=== PATIENT | female | born 1980 | race Caucasian/White ===

== ENCOUNTER 2023-01-06 17:28 | Inpatient (IN) | payer OTHER ==
[~2023-01-06] VITALS: Ht 167.6 cm; Wt 72.8 kg
[2023-01-06 20:45] VITALS: BP 94/79
[2023-01-06 21:00] VITALS: BP 112/80
[2023-01-06 22:00] VITALS: BP 94/79
[2023-01-06 22:09] LABS: BASOPHILS ABSOLUTE AUTO 0.07 K/mm3 (0.00-0.23); BASOPHILS PERCENT AUTO 0 % (0-2); EOSINOPHILS ABSOLUTE AUTO 0.07 K/mm3 (0.00-0.68); EOSINOPHILS PERCENT AUTO 0 % (0-6); Hematocrit 19.5 % (33.0-51.0); Hemoglobin 6.5 g/dL (11.5-16.0); IMMATURE GRAN ABSOLUTE AUTO 0.13 K/mm3 (0.00-0.10); IMMATURE GRAN PERCENT AUTO 1 % (0-1); LYMPHOCYTES ABSOLUTE AUTO 2.13 K/mm3 (0.84-5.20); LYMPHOCYTES PERCENT AUTO 10 % (21-46); MONOCYTES ABSOLUTE AUTO 1.81 K/mm3 (0.16-1.47); MONOCYTES PERCENT AUTO 9 % (4-13); Mean Corpuscular HGB 40.9 pg (26.0-34.0); Mean Corpuscular HGB Conc 33.3 g/dL (31.5-36.5); Mean Corpuscular Volume 123 fL (80-100); Mean Platelet Volume 11.1 fL (9.1-12.4); NEUTROPHILS ABSOLUTE AUTO 16.18 K/mm3 (1.96-9.15); NEUTROPHILS PERCENT AUTO 80 % (41-73); NRBC ABSOLUTE 0.02 K/mm3 (0.00-0.02); NRBC Auto 0.1 /100 WBC (0.0-0.2); Platelet Count 127 K/mm3 (150-400); RDW Coefficient Variation 18.4 % (11.7-14.2); RDW Standard Deviation 79.5 fL (35.1-46.3); Red Blood Cell Count 1.59 M/mm3 (3.80-5.20); White Blood Cell Count 20.39 K/mm3 (4.00-11.30)
[2023-01-06 22:36] LABS: Albumin, Blood 2.1 g/dL (3.4-5.0); Albumin/Globulin Ratio 0.5 (0.8-1.8); Bilirubin, Total 14.6 mg/dL (0.1-1.0); Bun/Creatinine Ratio 18.1 (12.0-20.0); Calcium, Blood 7.8 mg/dL (8.5-10.1); Creatinine, Blood 0.94 mg/dL (0.40-1.00); Magnesium, Blood 1.6 mg/dL (1.6-2.4); Total Protein, Blood 6.1 g/dL (6.4-8.2)
[2023-01-06 23:00] VITALS: BP 93/65
[2023-01-06 23:45] VITALS: BP 106/80
[2023-01-07] VITALS (43 sets, daily range): BP systolic 81–156; BP diastolic 45–124
[2023-01-07 04:09] LABS: BASOPHILS ABSOLUTE AUTO 0.13 K/mm3 (0.00-0.23); BASOPHILS PERCENT AUTO 1 % (0-2); EOSINOPHILS ABSOLUTE AUTO 0.12 K/mm3 (0.00-0.68); EOSINOPHILS PERCENT AUTO 1 % (0-6); Hemoglobin 8.5 g/dL (11.5-16.0); IMMATURE GRAN PERCENT AUTO 1 % (0-1); LYMPHOCYTES PERCENT AUTO 16 % (21-46); MONOCYTES PERCENT AUTO 6 % (4-13); Mean Platelet Volume 11.2 fL (9.1-12.4); NEUTROPHILS ABSOLUTE AUTO 15.36 K/mm3 (1.96-9.15); NEUTROPHILS PERCENT AUTO 77 % (41-73); NRBC ABSOLUTE 0.02 K/mm3 (0.00-0.02); NRBC Auto 0.1 /100 WBC (0.0-0.2); Platelet Count 109 K/mm3 (150-400); White Blood Cell Count 20.01 K/mm3 (4.00-11.30)
[2023-01-07 04:12] LABS: Hematocrit 24.8 % (33.0-51.0); Mean Corpuscular HGB 36.6 pg (26.0-34.0); Mean Corpuscular HGB Conc 34.3 g/dL (31.5-36.5); Mean Corpuscular Volume 107 fL (80-100); Red Blood Cell Count 2.32 M/mm3 (3.80-5.20)
[2023-01-07 04:21] LABS: International Normalized Ratio 1.81; Prothrombin Time Results 18.4 Sec (9.7-11.5)
[2023-01-07 04:33] LABS: Albumin, Blood 2.1 g/dL (3.4-5.0); Albumin/Globulin Ratio 0.5 (0.8-1.8); Bilirubin, Total 15.6 mg/dL (0.1-1.0); Bun/Creatinine Ratio 18.6 (12.0-20.0); Calcium, Blood 7.6 mg/dL (8.5-10.1); Creatinine, Blood 0.91 mg/dL (0.40-1.00); Globulin, Blood 3.9 g/dL (2.2-4.0); Magnesium, Blood 1.4 mg/dL (1.6-2.4); Potassium, Blood 3.6 mmol/L (3.5-5.5)
--- NOTE | 2023-01-07 08:17 | NUR ---
AM NOTE PT UP TO TOILET SBA TO MANAGE LINES, VSS, SHE IS ON RA. SHE REPORTS GENERALIZED PAIN, PAIN IS CHRONIC SHE TAKES OXYCODONE AT HOME. SHE IS CURRENTLY WORKING ON [employer].
[2023-01-07 10:35] LABS: BASOPHILS ABSOLUTE AUTO 0.13 K/mm3 (0.00-0.23); BASOPHILS PERCENT AUTO 1 % (0-2); EOSINOPHILS ABSOLUTE AUTO 0.09 K/mm3 (0.00-0.68); EOSINOPHILS PERCENT AUTO 1 % (0-6); Hemoglobin 8.2 g/dL (11.5-16.0); IMMATURE GRAN ABSOLUTE AUTO 0.14 K/mm3 (0.00-0.10); IMMATURE GRAN PERCENT AUTO 1 % (0-1); LYMPHOCYTES ABSOLUTE AUTO 1.47 K/mm3 (0.84-5.20); LYMPHOCYTES PERCENT AUTO 8 % (21-46); MONOCYTES ABSOLUTE AUTO 1.77 K/mm3 (0.16-1.47); MONOCYTES PERCENT AUTO 9 % (4-13); Mean Platelet Volume 11.5 fL (9.1-12.4); NEUTROPHILS ABSOLUTE AUTO 16.12 K/mm3 (1.96-9.15); NEUTROPHILS PERCENT AUTO 82 % (41-73); NRBC ABSOLUTE 0.02 K/mm3 (0.00-0.02); NRBC Auto 0.1 /100 WBC (0.0-0.2); Platelet Count 101 K/mm3 (150-400); White Blood Cell Count 19.72 K/mm3 (4.00-11.30)
[2023-01-07 10:53] LABS: Hematocrit 23.1 % (33.0-51.0); Mean Corpuscular HGB 37.3 pg (26.0-34.0); Mean Corpuscular HGB Conc 35.5 g/dL (31.5-36.5); Mean Corpuscular Volume 105 fL (80-100)
[2023-01-07 15:33] LABS: U Amphetamine Screen Not Detected; U Barbituate Screen Not Detected; U Benzodiazapine Screen Not Detected; U Buprenorphine Screen Not Detected; U Cannabinoids Screen Not Detected; U Cocaine Screen Not Detected; U Methadone Screen DETECTED; U Methamphetamine Screen Not Detected; U Opiates Screen DETECTED; U Phencyclidine Screen Not Detected
[2023-01-07 15:34] LABS: U Oxycodone Screen DETECTED
[2023-01-07 16:26] LABS: BASOPHILS ABSOLUTE AUTO 0.08 K/mm3 (0.00-0.23); BASOPHILS PERCENT AUTO 0 % (0-2); EOSINOPHILS ABSOLUTE AUTO 0.03 K/mm3 (0.00-0.68); EOSINOPHILS PERCENT AUTO 0 % (0-6); Hemoglobin 8.1 g/dL (11.5-16.0); IMMATURE GRAN ABSOLUTE AUTO 0.13 K/mm3 (0.00-0.10); IMMATURE GRAN PERCENT AUTO 1 % (0-1); LYMPHOCYTES ABSOLUTE AUTO 1.72 K/mm3 (0.84-5.20); LYMPHOCYTES PERCENT AUTO 9 % (21-46); MONOCYTES PERCENT AUTO 8 % (4-13); Mean Platelet Volume 11.1 fL (9.1-12.4); NEUTROPHILS ABSOLUTE AUTO 15.97 K/mm3 (1.96-9.15); NEUTROPHILS PERCENT AUTO 82 % (41-73); NRBC ABSOLUTE 0.02 K/mm3 (0.00-0.02); NRBC Auto 0.1 /100 WBC (0.0-0.2); Platelet Count 106 K/mm3 (150-400); White Blood Cell Count 19.43 K/mm3 (4.00-11.30)
--- NOTE | 2023-01-07 17:33 | NUR ---
01/07/23 1733 Marcie Jordan IN ICU [address] BUSTAMANTE'S RECORD FOR SEDATION.
[2023-01-07 17:58] LABS: Mean Corpuscular HGB 37.2 pg (26.0-34.0); Mean Corpuscular HGB Conc 35.2 g/dL (31.5-36.5); Mean Corpuscular Volume 106 fL (80-100); Red Blood Cell Count 2.18 M/mm3 (3.80-5.20)
--- NOTE | 2023-01-07 18:38 | NUR ---
SHIFT SUMMARY PT IS ALERT AND ORIENTED X 4, BP AND HR STABLE, SPO2 MAINTAINED >95% VIA RA. SHE DENIED FEELING SOB, SHE WAS A SBA/INDEPENDENT TO BEDSIDE COMMODE AND APPEARED STEADY ON HER FEET, SHE DENIED FEELING LIGHTHEADED/DIZZY. EGD AND COLONOSCOPY WERE COMPLETED AT APPROX. 1805 W/ NO SIGNIFICANT SOURCE OF BLEEDING FOUND. SHE REPORTED FEELINGS OF CHEST PRESSURE BUT STATED IT WAS NOT A NEW SYMPTOM FOR HER. HER IS CURRENTLY AT BEDSIDE, CALL LIGHT IS W/IN REACH.
--- NOTE | 2023-01-08 00:40 | NUR ---
PT A&O x4, VSS, AFEBRILE. PT PLEASANT AND COOPERATIVE WITH CARE PROVIDED. PT ADMITTED TO THE MEDICAL FLOOR AT 0005. PT 1P SBA FROM W/C TO HOSPITAL BED. PT USES A FWW AT HOME. PT C/O PAIN TO UNDERNEATH BILATERAL BREASTS/RIBCAGE REGION. PAIN MANAGED WITH IV MORPHINE AND PO OXYCODNE. PT ADMITTED FOR GI BLEED. POWERGLIDE TO R UPPER AR, SALINE LOCKED AND FLUSHES WELL. WARM BLANKETS PROVIDED. PT ABLE TO MAKE NEEDS KNOWN. CALL LIGHT WITHIN REACH, WCTM.
--- NOTE | 2023-01-08 01:01 | NUR ---
PT TRANSFER PT CHANGED TO MEDICAL STATUS. REPORT GIVEN TO ZO PRUITT. PT A/OX4. LUNG SOUNDS CLEAR. PT C/O PAIN. PT EXCITED TO BE IN BETTER BED SO SHE CAN SLEEP. PT TRANSFERED AT 0000 01/08/23.
[2023-01-08 04:04] VITALS: BP 100/56
[2023-01-08 08:11] VITALS: BP 116/63
[2023-01-08 09:03] LABS: Hematocrit 20.1 % (33.0-51.0)
[2023-01-08 09:21] LABS: Bun/Creatinine Ratio 17.6 (12.0-20.0); Calcium, Blood 7.7 mg/dL (8.5-10.1); Creatinine, Blood 1.02 mg/dL (0.40-1.00); Potassium, Blood 2.5 mmol/L (3.5-5.5)
[2023-01-08] MEDS ORDERED: FUROSEMIDE40 MG PO (12:21)
[2023-01-08] MEDS ORDERED: KLONOPIN0.5 M9 PO (12:22)
[2023-01-08] MEDS ORDERED: OXYC5 PO (12:22)
[2023-01-08] MEDS ORDERED: NEURONTIN300 MG PO (12:23)
[2023-01-08] MEDS ORDERED: ALDACTONE100 MG PO (12:24)
[2023-01-08] MEDS ORDERED: FOLI1 PO (12:25)
[2023-01-08] MEDS ORDERED: Vitamin B-12100 MCG PO (12:25)
[2023-01-08] MEDS ORDERED: MIDODRINE HCL 10 MG (12:27)
[2023-01-08] MEDS ORDERED: MIDODRINE HCL 10 MG PO (12:27)
[2023-01-08] MEDS ORDERED: MIDODRINE HCL10 M1 PO (12:28)
[2023-01-08] MEDS ORDERED: VITAMIN B-1100 M1 PO (12:31)
--- NOTE | 2023-01-08 14:24 | NUR ---
PT DISCHARGED THE PT AND HER VERBALIZED UNDERSTANDING OF THE DC INSTRUCTIONS. THE PT WAS REMINDED TO CALL HER PCP ON MONDAY TO SCHEDULE A POST HOSPITAL REVIEW APPOINTMENT. THE PT WAS TRANSFERED VIA WHELCHAIR ACCOMAPNIED BY THE [employer] PIPE COVERING SUPERVISOR AND HER TO THE FRONT DOOR
== END 2023-01-08 13:40 | disposition home or self-care (01) | DRG 378 ==
LOC: PCU 17:28 → ICUE 17:50 → MEDS 01-08 00:03
PROVIDERS: Anesthesiology; Internal Medicine; Internal Medicine Gastroenterology; ADMIT Internal Medicine
PROC: 30233N1 Transfusion of Nonautologous Red Blood Cells into Peripheral Vein, Percutaneous Approach (ICD-10-PCS; 2023-01-06)
PROC: 0DJ08ZZ Inspection of Upper Intestinal Tract, Via Natural or Artificial Opening Endoscopic (ICD-10-PCS; principal; 2023-01-07 14:00)
PROC: 0DBN8ZZ Excision of Sigmoid Colon, Via Natural or Artificial Opening Endoscopic (ICD-10-PCS; 2023-01-07 14:00)
DX: K92.2 Gastrointestinal hemorrhage, unspecified (principal); D62 Acute posthemorrhagic anemia; F11.20 Opioid dependence, uncomplicated; D68.9 Coagulation defect, unspecified; K70.10 Alcoholic hepatitis without ascites; E83.42 Hypomagnesemia; R82.81 Pyuria; Z51.5 Encounter for palliative care; K64.4 Residual hemorrhoidal skin tags; K63.5 Polyp of colon; I48.91 Unspecified atrial fibrillation; K21.9 Gastro-esophageal reflux disease without esophagitis; G89.4 Chronic pain syndrome; F10.90 Alcohol use, unspecified, uncomplicated; E87.6 Hypokalemia; F41.0 Panic disorder [episodic paroxysmal anxiety]; F43.10 Post-traumatic stress disorder, unspecified; Z88.2 Allergy status to sulfonamides; Z88.8 Allergy status to other drugs, medicaments and biological substances
CPT/HCPCS: 36415; 36430; 80048; 80053; 82105; 83735; 85014; 85018; 85025; 85610; 86850; 86900; 86901; 86920; 88305; 93306; A9270; C1751; C9113; J0171; J0696; J1430; J2001; J2270; J2371; J2405; J2704; J2765; J3411; J3475; J3480; J7050; J7120; P9016